=== PATIENT | male | born 1975 | race American Indian/Alaskan Native ===

== ENCOUNTER 2018-03-26 16:03 | Outpatient (CLI) | payer OTHER ==
--- NOTE | 2018-03-26 18:47 | XRay Report ---
FINAL REPORT EXAM: XR CHEST ROUTINE 2V HISTORY: DISABILITY TECHNIQUE: PA and lateral views of the chest Comparison: None FINDINGS: There is no evidence of focal infiltrate, pneumothorax or pleural fluid collection. There is an approximately 2.5 centimeter ossific density projected in the left lung apex that is of unclear etiology. The cardiomediastinal silhouette is normal in appearance. The bony structures are unremarkable. IMPRESSION: 1. Approximately 2.5 centimeter ossific density projected in the left lung apex that is of unclear etiology. Comparison with previous chest x-ray or CT chest is recommended for further evaluation . 2. No evidence of an acute pulmonary process.
--- NOTE | 2018-03-26 18:51 | XRay Report ---
FINAL REPORT EXAM: XR SPINE LUMBOSACRAL 4+V HISTORY: DISABILITY TECHNIQUE: Frontal, lateral, bilateral oblique views lumbar spine and coned-down lateral view lumbosacral junction Comparison: None FINDINGS: Bony alignment is normal. The vertebral heights are maintained. There is loss of height of the L5-S1 disc. The paraspinous soft tissues are unremarkable. IMPRESSION: 1. Loss of height of the L5-S1 disc which could indicate degenerative change of this disc. If further imaging is required, MRI may be helpful.
== END 2018-03-26 16:04 | disposition home or self-care (01) ==
LOC: XRAY 16:03
PROVIDERS: ATTEND Internal Medicine
DX: Z02.71 Encounter for disability determination (principal); M47.897 Other spondylosis, lumbosacral region; F17.210 Nicotine dependence, cigarettes, uncomplicated
CPT/HCPCS: 71046; 72110